=== PATIENT | male | born 1955 | race Two or more races ===

== ENCOUNTER 2021-11-15 10:01 | Outpatient (CLI) | payer OTHER | END 2021-11-15 10:02 | disposition home or self-care (01) | LOC: LAB 10:01 | PROVIDERS: ATTEND General Practice | DX: E11.42 Type 2 diabetes mellitus with diabetic polyneuropathy (principal); D64.1 Secondary sideroblastic anemia due to disease; E55.9 Vitamin D deficiency, unspecified; M10.9 Gout, unspecified; E78.2 Mixed hyperlipidemia; N39.0 Urinary tract infection, site not specified; M85.9 Disorder of bone density and structure, unspecified; I11.9 Hypertensive heart disease without heart failure; Z12.11 Encounter for screening for malignant neoplasm of colon; N40.0 Benign prostatic hyperplasia without lower urinary tract symptoms ==